=== PATIENT | female | born 1985 | race Caucasian/White ===

== ENCOUNTER 2017-01-01 18:08 | Emergency (ER) | payer OTHER ==
[2017-01-01 19:04] LABS: BILIRUBIN NEGATIVE (NEGATIVE); BLOOD NEGATIVE Ery/uL (NEGATIVE); CLARITY CLEAR (CLEAR); COLOR YELLOW (YELLOW); GLUCOSE (U) NORMAL (NORMAL); KETONE (U) NEGATIVE (NEGATIVE); LEUKOCYTES NEGATIVE Leu/uL (NEGATIVE); NITRITE NEGATIVE (NEGATIVE); PROTEIN NEGATIVE (NEGATIVE); SPECIFIC GRAVITY 1.015 (1.001-1.030); UROBILINOGEN 0.2 mg/dL (0.2-1.0)
[2017-01-01 19:14] LABS: BASOPHIL 0.1 % (0-2); EOSINOPHIL 0.7 % (0-5); HCT 34.3 % (37.0-47.0); HGB 12.2 g/dl (12.5-16.0); LYMPHOCYTE 20.6 % (15-48); MCH 31.7 pg (25.0-31.0); MCHC 35.6 g/dL (32.0-36.0); MCV 89.1 fL (78.0-100.0); MONOCYTE 7.3 % (0-12); MPV 10.3 fL (6.0-9.5); NEUTROPHIL 71.3 % (41-80); PLT 220 K/uL (150-400); RBC 3.85 M/uL (4.20-5.40); WBC 8.4 K/uL (4.0-10.5)
[2017-01-01 19:44] LABS: CREATININE 0.5 mg/dL (0.5-1.0); POTASSIUM 3.7 mmol/L (3.5-5.1)
== END 2017-01-01 20:34 | disposition home or self-care (01) ==
LOC: FER 18:08
PROVIDERS: Nurse Practitioner Family
DX: O99.89 Other specified diseases and conditions complicating pregnancy, childbirth and the puerperium (principal); R10.2 Pelvic and perineal pain; R39.15 Urgency of urination; R35.0 Frequency of micturition; R11.2 Nausea with vomiting, unspecified; O26.892 Other specified pregnancy related conditions, second trimester; N89.8 Other specified noninflammatory disorders of vagina; O99.332 Smoking (tobacco) complicating pregnancy, second trimester; F17.210 Nicotine dependence, cigarettes, uncomplicated; Z98.890 Other specified postprocedural states; Z3A.18 18 weeks gestation of pregnancy; Z87.19 Personal history of other diseases of the digestive system
CPT/HCPCS: 36415; 80048; 81003; 85025; 99284

== ENCOUNTER 2020-10-24 16:43 | Inpatient (IN) | payer OTHER ==
[~2020-10-24 16:43] MED LIST: ETODOLAC500 MG PO; FLONASE ALLER15.8 ML; IBUPROFEN800 M1 PO; IBUPROFEN800 MG PO; ONDANSETRON ODT4 MG PO; SUBOXONE 8 MG-1 EACH PO; ZYRTEC10 M3 PO
[2020-10-24 18:28] LABS: BASOPHIL 0.1 % (0-2); EOSINOPHIL 0 % (0-5); HCT 40.2 % (37.0-47.0); HGB 13.5 g/dl (12.5-16.0); LYMPHOCYTE 4.6 % (15-48); MCH 31.5 pg (25.0-31.0); MCHC 33.6 g/dL (32.0-36.0); MCV 93.7 fL (78.0-100.0); MONOCYTE 7.3 % (0-12); MPV 11.2 fL (6.0-9.5); NRBC 0; PLT 142 K/uL (150-400); RBC 4.29 M/uL (4.20-5.40); RDW 13.5 % (11.5-14.0); WBC 13.6 K/uL (4.0-10.5)
[2020-10-24 18:30] LABS: NEUTROPHIL 86.8 % (41-80)
[2020-10-24 18:32] LABS: BILIRUBIN NEGATIVE (NEGATIVE); BLOOD 2+ Ery/uL (NEGATIVE); CLARITY CLOUDY (CLEAR); COLOR YELLOW (YELLOW); GLUCOSE (U) NORMAL (NORMAL); LEUKOCYTES 2+ Leu/uL (NEGATIVE); NITRITE POSITIVE (NEGATIVE); PROTEIN 2+ mg/dL (NEGATIVE); SPECIFIC GRAVITY 1.025 (1.001-1.030); UROBILINOGEN 0.2 mg/dL (0.2-1.0)
[2020-10-24 18:38] LABS: AMORPHOUS URATES CRYSTALS MODERATE; BACTERIA 4+; GRANULAR CASTS MODERATE; URINARY WBC TNTC
[2020-10-24 18:50] LABS: ALBUMIN 3.3 g/dL (3.4-5.0); BILIRUBIN - TOTAL 0.4 mg/dL (0.2-1.0); BUN/CREAT RATIO (CALC) 11.4 RATIO; CREATININE 1.14 mg/dL (0.51-0.95); GLOBULIN (CALCULATION) 4.6 g/dL; TOTAL PROTEIN 7.9 g/dL (6.4-8.2)
[2020-10-24 19:08] LABS: CORONAVIRUS 2019 SARS-COV-2 NEGATIVE (NEGATIVE); INFLUENZA A NAA NEGATIVE (NEGATIVE)
[2020-10-25 06:32] LABS: BASOPHIL 0.3 % (0-2); EOSINOPHIL 0 % (0-5); HCT 33.8 % (37.0-47.0); HGB 11.4 g/dl (12.5-16.0); LYMPHOCYTE 4.3 % (15-48); MCH 31.7 pg (25.0-31.0); MCHC 33.7 g/dL (32.0-36.0); MCV 93.9 fL (78.0-100.0); MPV 11.8 fL (6.0-9.5); NEUTROPHIL 86.4 % (41-80); NRBC 0; PLT 118 K/uL (150-400); RDW 13.6 % (11.5-14.0); WBC 11.4 K/uL (4.0-10.5)
[2020-10-25 07:04] LABS: BUN/CREAT RATIO (CALC) 12.4 RATIO; CREATININE 1.05 mg/dL (0.51-0.95); POTASSIUM 3.5 mmol/L (3.5-5.1)
[2020-10-25 07:07] LABS: LACTIC ACID 1.4 mmol/L (0.4-1.9)
--- NOTE | 2020-10-25 12:42 | NUR ---
LIVES WITH MONICA' AND HER 3 YEAR OLD CHILD REPORTS SHE IS INDEPENDNET WITH ADL'S AND DOES NOT THINK SHE WILL HAVE ANY DISCHARE NEEDS; PLEASE ADVISE WITH ANY NEEDS SHE MAY HAVE
[2020-10-26 16:10] LABS: ALKALINE PHOSPHATASE, S 149 IU/L (39-117); BONE FRACTION: 33 % (14-68); INTESTINAL FRAC.: 2 % (0-18); LIVER FRACTION: 65 % (18-85)
[2020-10-27 00:38] LABS: HCT 30.4 % (37.0-47.0); HGB 10.1 g/dl (12.5-16.0); MCHC 33.2 g/dL (32.0-36.0); MCV 93.3 fL (78.0-100.0); MPV 10.6 fL (6.0-9.5); RBC 3.26 M/uL (4.20-5.40); RDW 14.3 % (11.5-14.0); WBC 7.2 K/uL (4.0-10.5)
[2020-10-27 01:03] LABS: BUN/CREAT RATIO (CALC) 7.9 RATIO; CREATININE 1.01 mg/dL (0.51-0.95); POTASSIUM 3.1 mmol/L (3.5-5.1)
[2020-10-28 06:08] LABS: HCT 30.5 % (37.0-47.0); HGB 10.2 g/dl (12.5-16.0); MCH 30.6 pg (25.0-31.0); MCHC 33.4 g/dL (32.0-36.0); MCV 91.6 fL (78.0-100.0); MPV 10.9 fL (6.0-9.5); RBC 3.33 M/uL (4.20-5.40); RDW 14.5 % (11.5-14.0)
[2020-10-28 06:33] LABS: BUN/CREAT RATIO (CALC) 5.8 RATIO; CREATININE 0.86 mg/dL (0.51-0.95)
[2020-10-28] MEDS ORDERED: LACTINEX1 EACH PO (12:07)
[2020-10-28] MEDS ORDERED: LEVAQUIN750 MG PO (12:07)
== END 2020-10-28 13:09 | disposition home or self-care (01) | DRG 690 ==
LOC: FER 16:43 → FMS 20:57
PROVIDERS: Allergy & Immunology; Emergency Medicine; Hospitalist; ADMIT Internal Medicine
DX: N10 Acute pyelonephritis (principal); E87.5 Hyperkalemia; F17.200 Nicotine dependence, unspecified, uncomplicated; F17.210 Nicotine dependence, cigarettes, uncomplicated; G43.909 Migraine, unspecified, not intractable, without status migrainosus; Z20.822 Contact with and (suspected) exposure to COVID-19; N17.9 Acute kidney failure, unspecified; Z98.890 Other specified postprocedural states
CPT/HCPCS: 36415; 71275; 76770; 80048; 80053; 81001; 83605; 84075; 84078; 84145; 85025; 85379; 87040; 87088; 94010; J0696; J1170; J1650; J1885; J2405; J2550; J7030; Q9967; U0002

== ENCOUNTER 2021-11-08 23:50 | Emergency (ER) | payer OTHER ==
[~2021-11-08 23:50] MED LIST changes: +LACTINEX1 EACH PO; +LEVAQUIN750 MG PO
[2021-11-09 01:48] LABS: CORONAVIRUS 2019 SARS-COV-2 NEGATIVE (NEGATIVE); INFLUENZA A NAA NEGATIVE (NEGATIVE)
[2021-11-09] MEDS ORDERED: PHENERGAN25 M1 PO (03:43)
[2021-11-09] MEDS ORDERED: ONDANSETRON ODT4 MG PO (03:43)
== END 2021-11-09 03:59 | disposition home or self-care (01) ==
LOC: FER 23:50
PROVIDERS: Emergency Medicine
DX: J06.9 Acute upper respiratory infection, unspecified (principal); F17.200 Nicotine dependence, unspecified, uncomplicated; Z20.822 Contact with and (suspected) exposure to COVID-19; Z98.890 Other specified postprocedural states
CPT/HCPCS: 99284; Q0169; U0002